=== PATIENT | male | born 1995 | race Caucasian/White ===

== ENCOUNTER → 2017-08-05 | Outpatient (CLI) | payer OTHER ==
--- NOTE | 2017-08-05 17:09 | XCELERA REPORT ---
[address] [address] Lower Extremity Venous Evaluation Name: KANE RAYA Age: 22 yrs Gender: Male : 1995 Patient Status: Outpatient Patient Location: Study Date: 08/05/2017 11:50 AM Procedure: Color flow and duplex imaging of the veins of the left lower extremity as well as the right Common Femoral vein. Reason For Study: LLE M79.605 Ordering Physician: DASIA DELGADILLO Performed By: Lien Pretty Right Sided Venous Evaluation The right common femoral vein is fully compressible. Spontaneous and phasic flow is present in the right common femoral vein. Left Sided Venous Evaluation Normal vessel filling wall to wall, compression and augmentation as well as Colour flow down to the infrageniculate veins. Interpretation Summary No duplex evidence of DVT or obstruction in the left lower extremity nor in the right Common Femoral vein. : DASAI DELGADILLO > Johnathan Nelson
== END ==
LOC: SP 11:30
PROVIDERS: ATTEND Physician Assistant
DX: M79.605 Pain in left leg (principal)
CPT/HCPCS: 93971